=== PATIENT | female | born 1980 | race Caucasian/White ===

== ENCOUNTER 2018-04-25 08:48 | Emergency (ER) | payer MEDICAID ==
[~2018-04-25] VITALS: Ht 167.6 cm; Wt 73.6 kg
[~2018-04-25 08:48] MED LIST: NORG1TAB23; TRAN650T2 PO
[2018-04-25 09:01] VITALS: BP 130/83
[2018-04-25] MEDS ORDERED: AMOX-100 PO (09:23)
[2018-04-25] MEDS ORDERED: CHLO473M3 PO (09:23)
== END 2018-04-25 09:30 | disposition home or self-care (01) ==
LOC: ER 08:49
DX: K08.89 Other specified disorders of teeth and supporting structures (principal); F41.9 Anxiety disorder, unspecified; F31.9 Bipolar disorder, unspecified; Z86.14 Personal history of Methicillin resistant Staphylococcus aureus infection
CPT/HCPCS: 99283

== ENCOUNTER 2019-03-19 10:48 | Emergency (ER) | payer MEDICAID ==
[~2019-03-19] VITALS: Ht 167.6 cm; Wt 64.0 kg
[~2019-03-19 10:48] MED LIST changes: +CHLO473M3 PO
[2019-03-19 11:51] LABS: CLARITY,URINE CLEAR (Clear); COLOR,URINE YELLOW (Yellow); GLUCOSE, URINE NEGATIVE (Neg); KETONES,URINE NEGATIVE (Neg); LEUKOCYTE ESTERASE ,URINE NEGATIVE (Neg); NITRITES, URINE NEGATIVE (Neg); OCCULT BLOOD,URINE SMALL (Neg); PROTEIN,URINE NEGATIVE (Neg); UROBILINOGEN,URINE 0.2 E.U/dL (0.2-1.0)
[2019-03-19 11:53] LABS: URINE HCG NEGATIVE (NEG)
[2019-03-19 12:03] LABS: UA COLLECTION TYPE NON-SPECIFIED
[2019-03-19 12:05] LABS: BACTERIA,URINE NONE SEEN /HPF (Neg); MUCUS STRANDS FEW /LPF (Neg); RBC,URINE 0-2 /HPF (0-2); SQUAMOUS EPITHELIAL CELL,UR FEW /LPF (FEW); WBC,URINE NONE SEEN /HPF (0-4)
[2019-03-19 12:10] LABS: BASOPHILS % (AUTO) 0.3 % (0-1); EOSINOPHILS # (AUTO) 0.1 X10'3 (0-0.9); EOSINOPHILS % (AUTO) 1.2 % (0-6); HEMATOCRIT 44.5 % (35.0-45.0); HEMOGLOBIN 15.1 g/dl (12.0-16.0); LYMPHOCYTES # (AUTO) 1.2 X10'3 (1.1-4.8); LYMPHOCYTES % (AUTO) 13.9 % (21-51); MEAN CORPUSCULAR HEMOGLOBIN 32.1 PG (27.0-31.0); MEAN CORPUSCULAR HGB CONC 33.8 g/dL (33.0-36.5); MEAN CORPUSCULAR VOLUME 95.1 FL (78-98); MEAN PLATELET VOLUME 7.6 FL (7.4-10.4); MONOCYTES # (AUTO) 0.6 X10'3 (0-0.9); MONOCYTES % (AUTO) 6.3 % (2-12); NEUTROPHILS % (AUTO) 78.3 % (42-75); PLATELET COUNT 256 X10'3 (140-440); RED BLOOD COUNT 4.69 X10'6 (4.20-5.60); RED CELL DISTRIBUTION WIDTH 12.8 % (11.5-14.5); WHITE BLOOD COUNT 8.9 X10'3 (4.5-11.0)
[2019-03-19 12:20] LABS: ALANINE AMINOTRANSFERASE 21 U/L (12-78); ALBUMIN 4.1 G/DL (3.4-5.0); ALBUMIN/GLOBULIN RATIO 1.1 (1.1-1.5); ALKALINE PHOSPHATASE 65 IU/L (46-116); ANION GAP 10 (8-16); ASPARTATE AMINO TRANSFERASE 6 U/L (10-37); BILIRUBIN,TOTAL 0.3 MG/DL (0.1-1.0); BLOOD UREA NITROGEN 16 MG/DL (7-18); BUN/CREATININE RATIO 22.5 (6.6-38.0); CALCIUM 9.2 MG/DL (8.5-10.1); CHLORIDE 103 MMOL/L (99-107); CREATININE 0.71 MG/DL (0.40-0.90); GLUCOSE 100 MG/DL (70-104); POTASSIUM 3.8 MMOL/L (3.5-5.1); SODIUM 139 MMOL/L (135-145); TOTAL CARBON DIOXIDE 26.1 MMOL/L (24-32); eGFR > 90 ML/MIN
[2019-03-19] MEDS ORDERED: OMEP40CA37 PO (13:06)
[2019-03-19] MEDS ORDERED: ONDA4TAB12 PO (13:10)
[2019-03-19 13:15] VITALS: BP 128/78
== END 2019-03-19 13:27 | disposition home or self-care (01) ==
LOC: ER 10:48
DX: R10.13 Epigastric pain (principal); R11.10 Vomiting, unspecified; K21.9 Gastro-esophageal reflux disease without esophagitis; F41.9 Anxiety disorder, unspecified; F31.9 Bipolar disorder, unspecified; F17.200 Nicotine dependence, unspecified, uncomplicated; Z86.14 Personal history of Methicillin resistant Staphylococcus aureus infection; Z79.899 Other long term (current) drug therapy; Z90.710 Acquired absence of both cervix and uterus
CPT/HCPCS: 36415; 80053; 81001; 81025; 85025; 85610; 99283; 99291

== ENCOUNTER 2019-10-10 09:46 | Emergency (ER) | payer MEDICAID ==
[~2019-10-10] VITALS: Ht 167.6 cm; Wt 63.6 kg
[~2019-10-10 09:46] MED LIST changes: +ONDA4TAB12 PO
[2019-10-10 10:31] VITALS: BP 140/98
[2019-10-10 10:49] LABS: URINE HCG NEGATIVE (NEG)
[2019-10-10] MEDS ORDERED: diazepam 5mg tablet PO ONE (10:50)
[2019-10-10] MEDS ORDERED: ketorolac tromethamine 15mg/ml inj. IM ONE (10:50)
[2019-10-10 10:52] LABS: CLARITY,URINE SLIGHTLY CLOUDY (Clear); COLOR,URINE STRAW (Yellow); GLUCOSE, URINE NEGATIVE (Neg); KETONES,URINE NEGATIVE (Neg); LEUKOCYTE ESTERASE ,URINE NEGATIVE (Neg); NITRITES, URINE NEGATIVE (Neg); OCCULT BLOOD,URINE NEGATIVE (Neg); PROTEIN,URINE NEGATIVE (Neg); UROBILINOGEN,URINE 0.2 E.U/dL (0.2-1.0)
[2019-10-10 10:53] LABS: UA COLLECTION TYPE CLN CATCH MIDSTREAM
[2019-10-10 11:04] LABS: SQUAMOUS EPITHELIAL CELL,UR MANY /LPF (FEW)
[2019-10-10 11:06] LABS: EOSINOPHILS # (AUTO) 0.1 X10'3 (0-0.9); HEMOGLOBIN 14.1 g/dl (12.0-16.0); RED CELL DISTRIBUTION WIDTH 12.5 % (11.5-14.5)
[2019-10-10 11:07] LABS: BACTERIA,URINE 2+ /HPF (Neg); MUCUS STRANDS NONE SEEN /LPF (Neg); RBC,URINE 0-2 /HPF (0-2); WBC,URINE 0-4 /HPF (0-4)
[2019-10-10 11:08] LABS: BASOPHILS % (AUTO) 0.4 % (0-1); EOSINOPHILS % (AUTO) 1.4 % (0-6); HEMATOCRIT 41.1 % (35.0-45.0); LYMPHOCYTES # (AUTO) 1.8 X10'3 (1.1-4.8); LYMPHOCYTES % (AUTO) 25.3 % (21-51); MEAN CORPUSCULAR HEMOGLOBIN 31.2 PG (27.0-31.0); MEAN CORPUSCULAR HGB CONC 34.3 g/dL (33.0-36.5); MEAN PLATELET VOLUME 7.6 FL (7.4-10.4); MONOCYTES # (AUTO) 0.4 X10'3 (0-0.9); MONOCYTES % (AUTO) 5.5 % (2-12); NEUTROPHILS # (AUTO) 4.8 X10'3 (1.8-7.7); NEUTROPHILS % (AUTO) 67.4 % (42-75); PLATELET COUNT 268 X10'3 (140-440); RED BLOOD COUNT 4.51 X10'6 (4.20-5.60); WHITE BLOOD COUNT 7.1 X10'3 (4.5-11.0)
[2019-10-10 11:21] LABS: ALANINE AMINOTRANSFERASE 22 U/L (12-78); ALBUMIN 4.1 G/DL (3.4-5.0); ALBUMIN/GLOBULIN RATIO 1.1 (1.1-1.5); ALKALINE PHOSPHATASE 63 IU/L (46-116); ANION GAP 6 (8-16); ASPARTATE AMINO TRANSFERASE 16 U/L (10-37); BILIRUBIN,TOTAL 0.2 MG/DL (0.1-1.0); BLOOD UREA NITROGEN 17 MG/DL (7-18); BUN/CREATININE RATIO 24.6 (6.6-38.0); CHLORIDE 104 MMOL/L (99-107); CREATININE 0.69 MG/DL (0.40-0.90); GLUCOSE 82 MG/DL (70-104); LIPASE 143 U/L (73-393); POTASSIUM 4.1 MMOL/L (3.5-5.1); SODIUM 140 MMOL/L (135-145); TOTAL CARBON DIOXIDE 29.9 MMOL/L (24-32); TOTAL PROTEIN 7.7 G/DL (6.4-8.2); eGFR > 90 ML/MIN
[2019-10-10] MEDS ORDERED: NAPR-56 PO (11:35)
[2019-10-10] MEDS ORDERED: TIZA2CAP PO (11:35)
== END 2019-10-10 11:44 | disposition home or self-care (01) ==
LOC: ER 09:46
DX: M54.41 Lumbago with sciatica, right side (principal); F41.9 Anxiety disorder, unspecified; F31.9 Bipolar disorder, unspecified; F10.99 Alcohol use, unspecified with unspecified alcohol-induced disorder; Z86.14 Personal history of Methicillin resistant Staphylococcus aureus infection; Z79.899 Other long term (current) drug therapy; Y90.9 Presence of alcohol in blood, level not specified
CPT/HCPCS: 36415; 80053; 81001; 81025; 83690; 85025; 96372; 99283; J1885

== ENCOUNTER 2020-04-29 13:23 | Inpatient (IN) | payer MEDICAID ==
[2020-04-29] VITALS (7 sets, daily range): BP systolic 92–114; BP diastolic 58–70
[~2020-04-29] VITALS: Ht 170.2 cm; Wt 63.1 kg
[~2020-04-29 13:23] MED LIST changes: +TIZA2CAP PO
--- NOTE | 2020-04-29 13:37 | NUR ---
POSISON CONTROL CONTACTED NOTIFIED OF RECOMMENDATIONS
--- NOTE | 2020-04-29 13:45 | NUR ---
POSION CONTROL RECOMMENDATIONS: Labs: unrine tox, CMP TYLENOL, BLOOD ALCOHOL 24 HOUR OBSERVATION NARCAN FOR RESP. DEPRESSION (has to be obs. for 4 hours after administration) IV FLUIDS FOR HYPOTENTION EKG AND REPEAT EKG AT 4 HOURS CHECK BLOOD SUGAR IF QTc >500 give magnesium 1-2g IF SHE HAS A SEIZURE USE BENZOS FIRST LINE OF TREATMENT
[2020-04-29 13:47] LABS: EOSINOPHILS # (AUTO) 0.1 X10'3 (0-0.9); NEUTROPHILS # (AUTO) 1.6 X10'3 (1.8-7.7); RED CELL DISTRIBUTION WIDTH 13.1 % (11.5-14.5)
[2020-04-29 13:49] LABS: BASOPHILS % (AUTO) 0.7 % (0-1); EOSINOPHILS % (AUTO) 3.9 % (0-6); HEMATOCRIT 40.6 % (35.0-45.0); HEMOGLOBIN 13.8 g/dl (12.0-16.0); LYMPHOCYTES % (AUTO) 29.3 % (21-51); MEAN CORPUSCULAR HEMOGLOBIN 31.7 PG (27.0-31.0); MEAN CORPUSCULAR HGB CONC 34.1 g/dL (33.0-36.5); MEAN CORPUSCULAR VOLUME 92.9 FL (78-98); MEAN PLATELET VOLUME 7.4 FL (7.4-10.4); MONOCYTES # (AUTO) 0.6 X10'3 (0-0.9); MONOCYTES % (AUTO) 17.9 % (2-12); NEUTROPHILS % (AUTO) 48.2 % (42-75); PLATELET COUNT 202 X10'3 (140-440); RED BLOOD COUNT 4.37 X10'6 (4.20-5.60); WHITE BLOOD COUNT 3.4 X10'3 (4.5-11.0)
[2020-04-29] MEDS: naloxone 0.4 mg/ml inj IV PRN ×4 (13:54→15:34)
--- NOTE | 2020-04-29 13:55 | NUR ---
SECOND DOSE OF NARCAN 0.4MG IV GIVEN.
[2020-04-29 13:56] LABS: ALANINE AMINOTRANSFERASE 21 U/L (12-78); ALBUMIN 3.9 G/DL (3.4-5.0); ALBUMIN/GLOBULIN RATIO 1.1 (1.1-1.5); ALKALINE PHOSPHATASE 64 IU/L (46-116); ANION GAP 8 (8-16); ASPARTATE AMINO TRANSFERASE 18 U/L (10-37); BILIRUBIN,TOTAL 0.3 MG/DL (0.1-1.0); BLOOD UREA NITROGEN 14 MG/DL (7-18); CALCIUM 9.2 MG/DL (8.5-10.1); CHLORIDE 104 MMOL/L (99-107); CREATININE 1.17 MG/DL (0.40-0.90); GLUCOSE 133 MG/DL (70-104); POTASSIUM 3.6 MMOL/L (3.5-5.1); SODIUM 139 MMOL/L (135-145); TOTAL CARBON DIOXIDE 27.5 MMOL/L (24-32); TOTAL PROTEIN 7.5 G/DL (6.4-8.2); eGFR 51 ML/MIN
--- NOTE | 2020-04-29 13:59 | NUR ---
PHONE # [phone] CELL [phone]
[2020-04-29 14:01] LABS: URINE HCG NEGATIVE (NEG)
[2020-04-29 14:02] LABS: CLARITY,URINE SLIGHTLY CLOUDY (Clear); COLOR,URINE AMBER (Yellow); GLUCOSE, URINE NEGATIVE (Neg); KETONES,URINE 15 mg/dl (Neg); LEUKOCYTE ESTERASE ,URINE NEGATIVE (Neg); NITRITES, URINE NEGATIVE (Neg); OCCULT BLOOD,URINE TRACE-LYSED (Neg); PH,URINE 5.5 (4.8-8.0); PROTEIN,URINE 30 mg/dl (Neg)
[2020-04-29 14:03] LABS: UA COLLECTION TYPE STRAIGHT CATH
[2020-04-29 14:06] LABS: ETHANOL < 0.010 GM/DL (0.0-0.010)
[2020-04-29 14:07] LABS: ACETAMINOPHEN < 2.0 UG/ML (10-30)
[2020-04-29 14:08] LABS: URINE AMPHETAMINE SCREEN POSITIVE (Neg); URINE BARBITUATE SCREEN NEGATIVE (Neg); URINE BENZODIAZEPINES SCREEN POSITIVE (Neg); URINE CANNABINOID SCREEN POSITIVE (Neg); URINE COCAINE SCREEN NEGATIVE (Neg); URINE METHADONE SCREEN POSITIVE (Neg); URINE OPIATE SCREEN POSITIVE (Neg); URINE PHENCYCLIDINE SCREEN NEGATIVE (Neg)
--- NOTE | 2020-04-29 14:12 | NUR ---
PATIENT DIAPHORETIC,STARING OFF THE WALL.PUPILS DILATED 7MM.SEIZURE PADS PLACED.
[2020-04-29] MEDS ORDERED: LORazepam 2 mg/ml vial IV STA (14:14)
--- NOTE | 2020-04-29 14:14 | NUR ---
PATIENT REPORTS SHE WANTED TO LEAVE AND THERE'S NO WAY STAFF CAN KEEP HER HERE.DR. KOLB MADE AWARE,PT ANXIOUS,ATIVAN 1MG ORDERED WITH 1L NS.
[2020-04-29 14:16] LABS: MUCUS STRANDS MANY /LPF (Neg); SQUAMOUS EPITHELIAL CELL,UR MANY /LPF (FEW)
[2020-04-29 14:18] LABS: BACTERIA,URINE FEW /HPF (Neg); WBC,URINE 0-4 /HPF (0-4)
[2020-04-29] MEDS ORDERED: normal saline 1000ML IV soln IVB ONE (14:20)
[2020-04-29] MEDS ORDERED: LORazepam 2 mg/ml vial IV ONE (14:20)
[2020-04-29 14:27] LABS: TOTAL CELLS COUNTED 100
[2020-04-29 14:30] LABS: PLATELET ESTIMATE NORMAL
[2020-04-29] MEDS ORDERED: magnesium 2GM in 50ml NS 50 ML IV PRN (15:30)
[2020-04-29] MEDS ORDERED: magnesium Cl slow-release 64mg tablet PO PRN ×2 (15:30→18:30)
[2020-04-29] MEDS ORDERED: potassium Cl 20 mEq SR tablet PO PRN ×3 (15:30→18:30)
[2020-04-29] MEDS ORDERED: magnesium 4gm in 100ml NS 100 ML IV PRN ×2 (15:30→18:30)
[2020-04-29] MEDS ORDERED: potassium CL 10mEq/100ml bag 100 ML IV PRN ×3 (15:30→18:30)
[2020-04-29] MEDS ORDERED: acetaminophen 650mg rectal suppository RC PRN (15:30)
[2020-04-29] MEDS ORDERED: ondansetron/PF 4mg/2ml inj IV PRN (15:30)
[2020-04-29] MEDS ORDERED: K, MAG and/or Phos replacement - Verify level? MC SCH (15:30)
[2020-04-29] MEDS ORDERED: acetaminophen 325mg tablet PO PRN (15:30)
--- NOTE | 2020-04-29 15:31 | NUR ---
SPOKE TO TRISTIAN [employer] FORMER PALLIATIVE CARE PHYSICIAN,MADE AWARE RR 6-8 BREATHS/MIN.SAID SHE WILL ORDER A DRIP.PATIENT REPONSE TO VOICE.
--- NOTE | 2020-04-29 15:32 | NUR ---
PATIENT EASILY AROUSE.
--- NOTE | 2020-04-29 15:43 | NUR ---
called pharmacy,still making narcan.
[2020-04-29] MEDS: normal saline 1000ml 1,000 ML IV SCH (15:53)
[2020-04-29] MEDS: naloxone 2mg/2ml inj 2 MG in normal saline 500ml IV soln 498 ML IV SCH (15:53)
[2020-04-29] MEDS: pantoprazole 40 MG vial IV SCH (16:09)
[2020-04-29] MEDS ORDERED: PROP10TA10 PO (17:20)
[2020-04-29] MEDS ORDERED: CYCL5TAB PO (17:20)
[2020-04-29] MEDS ORDERED: BUSP7.5T4 PO (17:20)
[2020-04-29] MEDS ORDERED: LURA60TA2 PO (17:20)
[2020-04-29] MEDS ORDERED: LURA80TA3 PO (17:20)
[2020-04-29] MEDS ORDERED: naloxone 0.4 mg/ml inj IV ONE (17:25)
--- NOTE | 2020-04-29 17:43 | NUR ---
1640- patient arrived from ER, very drowsy able to scoot self over to bed. respirations 6-8, bp stable. rouses, oriented x4. narcan gtt on at 25 ml. 171- respirations remain low, spoke with Kaela Awad notified. one time dose of narcan 0.2 given. 174-respirations currently at 8. 2nd EKG in progress.
[2020-04-29] MEDS: lurasidone 60mg tablet PO SCH (18:00)
[2020-04-29] MEDS: dextrose 5%-normal saline 1,000 ML IV SCH (18:19)
--- NOTE | 2020-04-29 18:40 | NUR ---
1840- Spoke with poison control, recommendations discussed with Guy Awad, orders placed accordingly. Reported off to oncoming shift.
[2020-04-29 20:36] LABS: ABG BASE EXCESS -2.1 mmol/L (-2.0-2.0); ABG HCO3 25.4 mmol/L (22.0-26.0); ABG OXYGEN SATURATION 97.9 % (94-97); ABG PCO2 (T) 54.5 mmHg (32.0-45.0); ALLEN'S TEST POSITIVE; FCOHb 0.2 % (0.0-3.9); FMetHb 0.1 % (0.0-1.5); FO2Hb 97.6 % (94-97); PATIENT TEMPERATURE 36.5; TOTAL HEMOGLOBIN 12.4 G/dl (12.0-16.0)
[2020-04-29] MEDS: heparin, porcine 5000 units/ml vial SQ SCH (20:57)
[2020-04-29 21:00] LABS: MAGNESIUM 1.9 MG/DL (1.5-2.4); POTASSIUM 4.4 MMOL/L (3.5-5.1)
--- NOTE | 2020-04-29 22:47 | NUR ---
Patient in room CICU 2009. I have received report from Harley PRAKASH and had the opportunity to ask questions and assume patient care.
--- NOTE | 2020-04-29 23:19 | NUR ---
unable to DART pt at this time, pt not able to answer questions, will try again at a later time.
[2020-04-30] VITALS (31 sets, daily range): BP systolic 78–119; BP diastolic 39–73
[2020-04-30] MEDS ORDERED: magnesium 2GM in 50ml NS 50 ML IV ONE (00:15)
[2020-04-30] MEDS: naloxone 2mg/2ml inj 2 MG in normal saline 500ml IV soln 498 ML IV SCH ×2 (04:04→13:52)
[2020-04-30 05:30] LABS: BASOPHILS % (AUTO) 0.7 % (0-1); EOSINOPHILS # (AUTO) 0.1 X10'3 (0-0.9); EOSINOPHILS % (AUTO) 3.4 % (0-6); HEMOGLOBIN 11.8 g/dl (12.0-16.0); LYMPHOCYTES # (AUTO) 1.5 X10'3 (1.1-4.8); LYMPHOCYTES % (AUTO) 36.9 % (21-51); MEAN CORPUSCULAR HEMOGLOBIN 32.5 PG (27.0-31.0); MEAN CORPUSCULAR HGB CONC 34.7 g/dL (33.0-36.5); MEAN CORPUSCULAR VOLUME 93.7 FL (78-98); MEAN PLATELET VOLUME 7.4 FL (7.4-10.4); MONOCYTES # (AUTO) 0.8 X10'3 (0-0.9); MONOCYTES % (AUTO) 18.4 % (2-12); NEUTROPHILS # (AUTO) 1.7 X10'3 (1.8-7.7); NEUTROPHILS % (AUTO) 40.6 % (42-75); PLATELET COUNT 167 X10'3 (140-440); RED BLOOD COUNT 3.63 X10'6 (4.20-5.60); WHITE BLOOD COUNT 4.2 X10'3 (4.5-11.0)
[2020-04-30 05:45] LABS: ALANINE AMINOTRANSFERASE 16 U/L (12-78); ALKALINE PHOSPHATASE 44 IU/L (46-116); ANION GAP 6 (8-16); ASPARTATE AMINO TRANSFERASE 13 U/L (10-37); BILIRUBIN,TOTAL 0.2 MG/DL (0.1-1.0); BLOOD UREA NITROGEN 9 MG/DL (7-18); BUN/CREATININE RATIO 11.1 (6.6-38.0); CALCIUM 8.5 MG/DL (8.5-10.1); CHLORIDE 109 MMOL/L (99-107); CREATININE 0.81 MG/DL (0.40-0.90); GLUCOSE 83 MG/DL (70-104); MAGNESIUM 2.4 MG/DL (1.5-2.4); PHOSPHORUS 3.3 MG/DL (2.3-4.5); SODIUM 142 MMOL/L (135-145); TOTAL CARBON DIOXIDE 26.8 MMOL/L (24-32); TOTAL PROTEIN 5.9 G/DL (6.4-8.2); eGFR 79 ML/MIN
[2020-04-30] MEDS: dextrose 50%-water 50ml dispensing syringe IV PRN ×3 (05:51→10:21)
--- NOTE | 2020-04-30 06:21 | NUR ---
Problems reprioritized. Patient report given, questions answered & plan of care reviewed with Nikkie PRAKASH.
[2020-04-30 06:56] LABS: TOTAL CELLS COUNTED 100
[2020-04-30 06:57] LABS: PLATELET ESTIMATE NORMAL
[2020-04-30] MEDS: normal saline 1000ml 1,000 ML IV SCH ×2 (07:20→07:26)
[2020-04-30] MEDS: lurasidone 20mg tablet PO SCH (07:22)
[2020-04-30] MEDS: heparin, porcine 5000 units/ml vial SQ SCH ×2 (07:23→20:35)
[2020-04-30] MEDS: dextrose 5%-normal saline 1,000 ML IV SCH ×2 (07:24→21:08)
[2020-04-30] MEDS: lurasidone 60mg tablet PO SCH (07:26)
[2020-04-30] MEDS: pantoprazole 40 MG vial IV SCH (07:30)
[2020-04-30] MEDS: magnesium 2GM in 50ml NS 50 ML IV PRN ×2 (08:54→12:22)
[2020-04-30 08:57] LABS: ANION GAP 8 (8-16); BILIRUBIN,TOTAL 0.2 MG/DL (0.1-1.0); BLOOD UREA NITROGEN 11 MG/DL (7-18); BUN/CREATININE RATIO 13.1 (6.6-38.0); CALCIUM 8.3 MG/DL (8.5-10.1); CHLORIDE 107 MMOL/L (99-107); CREATININE 0.84 MG/DL (0.40-0.90); GLUCOSE 156 MG/DL (70-104); POTASSIUM 3.8 MMOL/L (3.5-5.1); SODIUM 139 MMOL/L (135-145); TOTAL CARBON DIOXIDE 24.2 MMOL/L (24-32); eGFR 75 ML/MIN
[2020-04-30 08:58] LABS: ALANINE AMINOTRANSFERASE 11 U/L (12-78); ALBUMIN 3.1 G/DL (3.4-5.0); ALKALINE PHOSPHATASE 47 IU/L (46-116); ASPARTATE AMINO TRANSFERASE 14 U/L (10-37); TOTAL PROTEIN 6.1 G/DL (6.4-8.2)
--- NOTE | 2020-04-30 10:28 | NUR ---
RECEIVED REPORT AND ASSUMED CARE OF PATIENT. PATIENT AWAKE ,HOWEVER DROWSY. BS 60; 50% OF DEXTROSE GIVEN. DR. WILKINSON IN ROUNDING; ORDERS GIVEN AND NOTED.NETWORK TECHNICIAN AT BEDSIDE. CONTINUE ONE TO SURVEILLANCE. Addendum: 04/30/20 at 1038 by Mackenzie Jacobs RN Amended: Links added.
--- NOTE | 2020-04-30 12:14 | NUR ---
EKG TAKEN QT INTERVAL NOW 506; WILL HANG 2GRAMS OF MAG. Addendum: 04/30/20 at 1216 by Mackenzie Jacobs RN Amended: Links added.
--- NOTE | 2020-04-30 12:49 | NUR ---
Noted pt advanced to carb controlled diet w/ no hx DM; LAKESHA d/w RN regarding regular diet if MD agreeable. Addendum: 04/30/20 at [address] Amended: Links added.
--- NOTE | 2020-04-30 15:43 | NUR ---
DR. VICTORIA INTO SEE PATIENT.NARCAN GTT TURNED OFF PER ORDER . PATIENT HAS BEEN INCREASINGLY MORE ALERT THIS SHIFT. Addendum: 04/30/20 at 1547 by Mackenzie Jacobs RN Amended: Links added.
--- NOTE | 2020-04-30 18:20 | NUR ---
Patient in room CICU 2009. I have received report from Mackenzie PRAKASH and had the opportunity to ask questions and assume patient care.
--- NOTE | 2020-04-30 22:21 | NUR ---
Pt is easily aroused, dozing to sleep. RR 7-10/min with oxygen saturation 99-100% on room air. Rhythm is sinus HR 48-50. BP 100/53. No distress.
[2020-04-30] MEDS ORDERED: naloxone 0.4 mg/ml inj IV PRN (23:35)
[2020-04-30] MEDS ORDERED: lurasidone 60mg tablet PO SCH (23:36)
[2020-05-01] VITALS (38 sets, daily range): BP systolic 92–162; BP diastolic 42–83
[2020-05-01] MEDS ORDERED: GABA300C PO (05:09)
[2020-05-01 05:10] LABS: BASOPHILS % (AUTO) 0.5 % (0-1); EOSINOPHILS # (AUTO) 0.1 X10'3 (0-0.9); EOSINOPHILS % (AUTO) 2.8 % (0-6); HEMOGLOBIN 11.7 g/dl (12.0-16.0); LYMPHOCYTES # (AUTO) 1.4 X10'3 (1.1-4.8); LYMPHOCYTES % (AUTO) 38.4 % (21-51); MEAN CORPUSCULAR HEMOGLOBIN 31.3 PG (27.0-31.0); MEAN CORPUSCULAR HGB CONC 33.3 g/dL (33.0-36.5); MEAN PLATELET VOLUME 7.5 FL (7.4-10.4); MONOCYTES # (AUTO) 0.4 X10'3 (0-0.9); MONOCYTES % (AUTO) 10.1 % (2-12); NEUTROPHILS # (AUTO) 1.7 X10'3 (1.8-7.7); NEUTROPHILS % (AUTO) 48.2 % (42-75); PLATELET COUNT 177 X10'3 (140-440); RED BLOOD COUNT 3.73 X10'6 (4.20-5.60); WHITE BLOOD COUNT 3.5 X10'3 (4.5-11.0)
[2020-05-01] MEDS ORDERED: METH-603 PO (05:12)
--- NOTE | 2020-05-01 05:19 | NUR ---
Spoke to VARNISH FILTERER at [facility], updated Medication list received, Pts lead public relations specialist is Miranda Sharma. Pt was not on Xanax, and methocarbamol had been dc in January. Spoke to Anna Jane regarding pt has two small children at home, social studies teacher consult place for possible CPS intervention
[2020-05-01 05:31] LABS: ALANINE AMINOTRANSFERASE 17 U/L (12-78); ALBUMIN 2.9 G/DL (3.4-5.0); ALBUMIN/GLOBULIN RATIO 0.9 (1.1-1.5); ALKALINE PHOSPHATASE 45 IU/L (46-116); ANION GAP 7 (8-16); ASPARTATE AMINO TRANSFERASE 11 U/L (10-37); BILIRUBIN,TOTAL 0.2 MG/DL (0.1-1.0); BLOOD UREA NITROGEN 7 MG/DL (7-18); BUN/CREATININE RATIO 8.3 (6.6-38.0); CHLORIDE 109 MMOL/L (99-107); CREATININE 0.84 MG/DL (0.40-0.90); GLUCOSE 97 MG/DL (70-104); PHOSPHORUS 3.7 MG/DL (2.3-4.5); POTASSIUM 3.8 MMOL/L (3.5-5.1); SODIUM 142 MMOL/L (135-145); TOTAL CARBON DIOXIDE 26.4 MMOL/L (24-32); eGFR 75 ML/MIN
--- NOTE | 2020-05-01 06:29 | NUR ---
Problems reprioritized. Patient report given, questions answered & plan of care reviewed .
[2020-05-01] MEDS: normal saline 1000ml 1,000 ML IV SCH ×2 (07:28→20:48)
[2020-05-01] MEDS: pantoprazole 40 MG vial IV SCH (08:05)
[2020-05-01] MEDS: lurasidone 20mg tablet PO SCH (08:06)
[2020-05-01] MEDS: heparin, porcine 5000 units/ml vial SQ SCH ×2 (08:06→21:06)
[2020-05-01] MEDS: dextrose 5%-normal saline 1,000 ML IV SCH ×2 (08:49→22:47)
--- NOTE | 2020-05-01 09:26 | NUR ---
Dr. Marks at bedside. Per MD patient medically cleared. Spoke with Aisha, Bead Picker, packet being sent to mental health for evaluation.
--- NOTE | 2020-05-01 18:30 | NUR ---
Patient in room CICU 2009. I have received report from OLINDA Demarco and had the opportunity to ask questions and assume patient care. When nurse introduced self to patient, pt was observed to be visibly agitated. Nurse encouraged pt to express feelings. Pt denied need express feeling by stating "I'm fine. Nothing is wrong."
--- NOTE | 2020-05-01 18:50 | NUR ---
Patient's nurse and sitter were in another patient's room and I was asked to sit with her. She was hostile, cussing, pulling at lines and being overall unpleasant. I tried to help untangle her so she wouldn't pull on the lines and she told me to "get the fuck out". She also said she could leave anytime she wanted and I said "ok whatever you say". Patient's nurse came back so i left the room
[2020-05-02] VITALS (19 sets, daily range): BP systolic 105–161; BP diastolic 58–83
[2020-05-02 06:09] LABS: ALANINE AMINOTRANSFERASE 25 U/L (12-78); ALBUMIN 3.3 G/DL (3.4-5.0); ALBUMIN/GLOBULIN RATIO 1.1 (1.1-1.5); ALKALINE PHOSPHATASE 58 IU/L (46-116); ANION GAP 6 (8-16); ASPARTATE AMINO TRANSFERASE 22 U/L (10-37); BILIRUBIN,TOTAL 0.2 MG/DL (0.1-1.0); BLOOD UREA NITROGEN 5 MG/DL (7-18); BUN/CREATININE RATIO 5.8 (6.6-38.0); CALCIUM 8.8 MG/DL (8.5-10.1); CHLORIDE 106 MMOL/L (99-107); CREATININE 0.86 MG/DL (0.40-0.90); GLUCOSE 84 MG/DL (70-104); MAGNESIUM 1.7 MG/DL (1.5-2.4); PHOSPHORUS 3.7 MG/DL (2.3-4.5); POTASSIUM 3.8 MMOL/L (3.5-5.1); SODIUM 140 MMOL/L (135-145); TOTAL CARBON DIOXIDE 27.7 MMOL/L (24-32); TOTAL PROTEIN 6.4 G/DL (6.4-8.2); eGFR 73 ML/MIN
[2020-05-02 06:11] LABS: BASOPHILS % (AUTO) 0.4 % (0-1); EOSINOPHILS # (AUTO) 0.1 X10'3 (0-0.9); EOSINOPHILS % (AUTO) 1.9 % (0-6); HEMATOCRIT 38.8 % (35.0-45.0); HEMOGLOBIN 13.2 g/dl (12.0-16.0); LYMPHOCYTES # (AUTO) 1.6 X10'3 (1.1-4.8); MEAN CORPUSCULAR HEMOGLOBIN 31.3 PG (27.0-31.0); MEAN CORPUSCULAR VOLUME 92.3 FL (78-98); MEAN PLATELET VOLUME 7.2 FL (7.4-10.4); MONOCYTES # (AUTO) 0.3 X10'3 (0-0.9); MONOCYTES % (AUTO) 6.8 % (2-12); NEUTROPHILS # (AUTO) 2.6 X10'3 (1.8-7.7); NEUTROPHILS % (AUTO) 56.9 % (42-75); PLATELET COUNT 183 X10'3 (140-440); RED BLOOD COUNT 4.21 X10'6 (4.20-5.60); RED CELL DISTRIBUTION WIDTH 12.5 % (11.5-14.5); WHITE BLOOD COUNT 4.6 X10'3 (4.5-11.0)
[2020-05-02] MEDS ORDERED: pantoprazole 40mg Tablet.DR PO SCH (07:30)
[2020-05-02] MEDS: heparin, porcine 5000 units/ml vial SQ SCH (07:42)
[2020-05-02] MEDS: lurasidone 20mg tablet PO SCH (07:43)
[2020-05-02] MEDS: normal saline 1000ml 1,000 ML IV SCH (10:08)
--- NOTE | 2020-05-02 17:45 | NUR ---
Patient report given to RN in ED overflow. Pt transported off unit via wheelchair by staff.
--- NOTE | 2020-05-02 17:54 | NUR ---
PATIENT RECEIVED TO OVERFLOW BED 22 FROM CICU.
--- NOTE | 2020-05-02 17:54 | NUR ---
GREEN GOWN GIVEN,PATIENT UP TO THE BATHROOM.
[2020-05-03 12:53] LABS: EBV AB VCA, IGM <36.0 U/mL (0.0-35.9)
== END 2020-05-02 17:58 | disposition home or self-care (01) | DRG 817 ==
LOC: ER 13:23 → ED HOLD 15:28 → CICU 2S 17:01
PROC: 5A09357 Assistance with Respiratory Ventilation, Less than 24 Consecutive Hours, Continuous Positive Airway Pressure (ICD-10-PCS; principal; 2020-04-29)
DX: T42.4X2A Poisoning by benzodiazepines, intentional self-harm, initial encounter (principal); D72.819 Decreased white blood cell count, unspecified; F31.9 Bipolar disorder, unspecified; G92 Toxic encephalopathy; T40.3X2A Poisoning by methadone, intentional self-harm, initial encounter; R00.1 Bradycardia, unspecified; F41.9 Anxiety disorder, unspecified; G89.29 Other chronic pain; M54.5 Low back pain; I95.9 Hypotension, unspecified; Z80.0 Family history of malignant neoplasm of digestive organs; Z82.3 Family history of stroke; Z82.49 Family history of ischemic heart disease and other diseases of the circulatory system; Z83.71 Family history of colonic polyps; Z79.899 Other long term (current) drug therapy; Z98.51 Tubal ligation status; Y92.89 Other specified places as the place of occurrence of the external cause
CPT/HCPCS: 36415; 36600; 80053; 80305; 80320; 80329; 81001; 81025; 82803; 82948; 83735; 84100; 84132; 84443; 85007; 85018; 85025; 86663; 86664; 86665; 87081; 93005; 94660; 94760; 96361; 96374; 99291; C9113; G0378; J1644; J2060; J2310; J3475; J7030; J7040; J7042

== ENCOUNTER 2020-05-02 18:00 | Emergency (ER) | payer MEDICAID ==
[~2020-05-02] VITALS: Ht 167.6 cm; Wt 61.0 kg
[~2020-05-02 18:00] MED LIST changes: +BUSP7.5T4 PO; -CHLO473M3 PO; +CYCL5TAB PO; +GABA300C PO; +LURA60TA2 PO; +LURA80TA3 PO; +METH-603 PO; -NORG1TAB23; -ONDA4TAB12 PO; +PROP10TA10 PO; -TIZA2CAP PO; -TRAN650T2 PO
--- NOTE | 2020-05-02 18:49 | NUR ---
DR. SOSA WAS MADE AWARE OF THE PATIENT'S CURRENT SITUATION REGARDING PRIOR SELF HARM BEHAVIOR AND HER DISCHARGE FROM CICU FOR OD.
--- NOTE | 2020-05-02 19:31 | NUR ---
SPOKE TO SCOTT AT [facility]. SHE STATED THAT [facility] ([facility])HASN'T MENTIONED THE NEED FOR NEW LAB, SO AT THIS POINT, NO FURTHER LAB DRAWS ARE NEEDED.
[2020-05-02] MEDS: propranolol 10mg tablet PO SCH (20:03)
[2020-05-02] MEDS: busPIRone 15mg tablet PO SCH (20:03)
--- NOTE | 2020-05-02 20:56 | NUR ---
patient is sleeping undisturbed.
--- NOTE | 2020-05-02 22:00 | NUR ---
Packet faxed to [facility]
--- NOTE | 2020-05-02 23:54 | NUR ---
patient is sleeping undisturbed.
--- NOTE | 2020-05-03 02:46 | NUR ---
patient is sleeping undisturbed.
--- NOTE | 2020-05-03 04:40 | NUR ---
Spoke to [facility] regarding patient placement. They approved the packet said they will work on placement for the patient this morning
--- NOTE | 2020-05-03 04:42 | NUR ---
patient sleeping quietly
--- NOTE | 2020-05-03 06:21 | NUR ---
Received reoprt from Etienne
--- NOTE | 2020-05-03 06:59 | NUR ---
Pt is sleeping comfortably
--- NOTE | 2020-05-03 07:57 | NUR ---
Pt has reopsitioned self but goes back to sleep
[2020-05-03] MEDS ORDERED: lurasidone 20mg tablet PO SCH (08:00)
[2020-05-03] MEDS: busPIRone 15mg tablet PO SCH (08:15)
[2020-05-03] MEDS: propranolol 10mg tablet PO SCH (08:18)
--- NOTE | 2020-05-03 08:59 | NUR ---
Pt ate breakfast, was medication compliant, polite and cooperative. Pt stated she was feeling fine and went back to sleep after breakfast
--- NOTE | 2020-05-03 10:29 | NUR ---
Pt is still sleeping, only engages in simple conversation with short responses.
--- NOTE | 2020-05-03 12:46 | NUR ---
pt has been conversing on the phone, pleasant, cooperative and polite. Pt is concerned about placement and when it will happen
--- NOTE | 2020-05-03 13:13 | NUR ---
no concerns voiced at this time, Pt ate lunch, uses the restroom frequently, continues to rest on her bed, pt denies any SI
--- NOTE | 2020-05-03 14:48 | NUR ---
Spoke with Anel at [facility]. Provided information for nurse to nurse, pending acceptance for placement
--- NOTE | 2020-05-03 15:13 | NUR ---
Received call from from [facility], spoke with Deshawn who advised of acceptance of patient, pending ETA and will call back when closer time frame is verified
--- NOTE | 2020-05-03 16:04 | NUR ---
Pt is on the phone, currently awaiting placement. Pt expressed happiness to DC to another facility and does not voice any concerns at this time
--- NOTE | 2020-05-03 16:17 | NUR ---
kostas pickup at 1830
--- NOTE | 2020-05-03 16:34 | NUR ---
Pt is awaiting fruit or nut picker for transport to [facility]. supervisor gelatin plant [place] Pt relieved to be able to go, explained some of the discharge and admit process to her.
--- NOTE | 2020-05-03 17:16 | NUR ---
Pt resting, no new concerns at this time
--- NOTE | 2020-05-03 17:23 | NUR ---
Per [facility]/jennifer, accepting provider is Miranda Alva NP and Anel Hammer RN
[2020-05-03 19:13] VITALS: BP 140/89
[2020-05-03] MEDS ORDERED: lurasidone 60mg tablet PO SCH (21:00)
== END 2020-05-03 19:17 ==
LOC: ER 18:00
DX: T40.3X2A Poisoning by methadone, intentional self-harm, initial encounter (principal); T42.4X2A Poisoning by benzodiazepines, intentional self-harm, initial encounter; F41.9 Anxiety disorder, unspecified; F31.9 Bipolar disorder, unspecified; F17.200 Nicotine dependence, unspecified, uncomplicated; Z86.14 Personal history of Methicillin resistant Staphylococcus aureus infection; Z90.49 Acquired absence of other specified parts of digestive tract; Z72.89 Other problems related to lifestyle; Z79.899 Other long term (current) drug therapy; Y92.89 Other specified places as the place of occurrence of the external cause
CPT/HCPCS: 99285

== ENCOUNTER 2020-06-09 15:34 | Emergency (ER) | payer MEDICAID ==
[~2020-06-09] VITALS: Ht 167.6 cm; Wt 63.6 kg
[~2020-06-09 15:34] MED LIST changes: -BUSP7.5T4 PO; +BUSP7.5T5 PO; -CYCL5TAB PO; -GABA300C PO; -METH-603 PO
[2020-06-09 15:38] VITALS: BP 128/77
== END 2020-06-09 16:09 | disposition home or self-care (01) ==
LOC: ER 15:35
DX: Z13.89 Encounter for screening for other disorder (principal); F17.200 Nicotine dependence, unspecified, uncomplicated; F15.90 Other stimulant use, unspecified, uncomplicated; Z72.89 Other problems related to lifestyle; Z79.899 Other long term (current) drug therapy
CPT/HCPCS: 99283

== ENCOUNTER 2021-03-15 10:39 | Emergency (ER) | payer MEDICAID ==
[~2021-03-15] VITALS: Ht 167.6 cm; Wt 72.7 kg
[~2021-03-15 10:39] MED LIST changes: +LURA60TA PO; -LURA60TA2 PO
[2021-03-15 11:48] VITALS: BP 114/66
== END 2021-03-15 15:44 | disposition left against medical advice (07) ==
LOC: ER 10:39
DX: R42 Dizziness and giddiness (principal); Z53.21 Procedure and treatment not carried out due to patient leaving prior to being seen by health care provider
CPT/HCPCS: 93005

== ENCOUNTER 2022-09-13 18:38 | Emergency (ER) | payer MEDICAID ==
[~2022-09-13] VITALS: Ht 167.6 cm; Wt 75.0 kg
[~2022-09-13 18:38] MED LIST changes: +LURA80TA2 PO; -LURA80TA3 PO
[2022-09-13 18:39] VITALS: BP 154/78
== END 2022-09-13 19:43 ==
LOC: ER 18:38
DX: R51.9 Headache, unspecified (principal); R45.1 Restlessness and agitation; F41.9 Anxiety disorder, unspecified; F31.9 Bipolar disorder, unspecified; F15.90 Other stimulant use, unspecified, uncomplicated; Z72.89 Other problems related to lifestyle; Z86.14 Personal history of Methicillin resistant Staphylococcus aureus infection; Z79.899 Other long term (current) drug therapy
CPT/HCPCS: 99284

== ENCOUNTER 2023-09-22 17:50 | Emergency (ER) | payer MEDICAID ==
[~2023-09-22] VITALS: Ht 167.6 cm; Wt 63.6 kg
[2023-09-22] MEDS ORDERED: DOXYCYCLINE 100MG CAPSULE PO STA (19:22)
[2023-09-22 19:27] LABS: BASOPHILS % (AUTO) 0.4 % (0-1); EOSINOPHILS # (AUTO) 0.1 X10'3 (0-0.9); EOSINOPHILS % (AUTO) 1.1 % (0-6); HEMOGLOBIN 13.9 g/dl (12.0-16.0); LYMPHOCYTES # (AUTO) 1.2 X10'3 (1.1-4.8); LYMPHOCYTES % (AUTO) 9.3 % (21-51); MEAN CORPUSCULAR HEMOGLOBIN 32.4 PG (27.0-31.0); MEAN CORPUSCULAR VOLUME 95.3 FL (78-98); MEAN PLATELET VOLUME 7.3 FL (7.4-10.4); MONOCYTES % (AUTO) 7.9 % (2-12); NEUTROPHILS # (AUTO) 10.5 X10'3 (1.8-7.7); NEUTROPHILS % (AUTO) 81.3 % (42-75); PLATELET COUNT 236 X10'3 (140-440); RED CELL DISTRIBUTION WIDTH 12.9 % (11.5-14.5); WHITE BLOOD COUNT 12.9 X10'3 (4.5-11.0)
[2023-09-22 19:40] LABS: ALANINE AMINOTRANSFERASE 25 U/L (12-78); ALBUMIN 3.5 G/DL (3.4-5.0); ALBUMIN/GLOBULIN RATIO 0.8 (1.1-1.5); ALKALINE PHOSPHATASE 70 IU/L (46-116); ANION GAP 9 (8-16); ASPARTATE AMINO TRANSFERASE 16 U/L (10-37); BILIRUBIN,TOTAL 0.3 MG/DL (0.1-1.0); BLOOD UREA NITROGEN 8 MG/DL (7-18); BUN/CREATININE RATIO 12.1 (10.0-20.0); CALCIUM 9.4 MG/DL (8.5-10.1); CHLORIDE 101 MMOL/L (99-107); CREATININE 0.66 MG/DL (0.40-0.90); GLUCOSE 103 MG/DL (70-104); POTASSIUM 3.9 MMOL/L (3.5-5.1); SODIUM 137 MMOL/L (135-145); TOTAL CARBON DIOXIDE 26.7 MMOL/L (24-32); eCRCL 104 ML/MIN; eGFR > 90 ML/MIN
[2023-09-22] MEDS ORDERED: acetaminophen 325mg tablet PO ONE (19:40)
[2023-09-22] MEDS ORDERED: DOXY150T9 PO (19:46)
[2023-09-22 21:16] VITALS: BP 107/54; PULSE 92; RESP 18; TEMP 98.8; O2SAT 100
== END 2023-09-22 21:27 | disposition home or self-care (01) ==
LOC: ER 17:50
DX: L03.116 Cellulitis of left lower limb (principal)
CPT/HCPCS: 36415; 80053; 83605; 84145; 85025; 87040; 99283

== ENCOUNTER 2024-04-16 13:47 | Emergency (ER) | payer MEDICAID ==
[~2024-04-16] VITALS: Ht 167.6 cm; Wt 72.0 kg
[2024-04-16] MEDS ORDERED: ONDA-243 PO (15:23)
[2024-04-16] MEDS ORDERED: HYDR-3973 PO (15:23)
[2024-04-16] MEDS ORDERED: LIDO15CR11 TOP (15:23)
[2024-04-16] MEDS ORDERED: SULF1TAB49 PO (15:23)
[2024-04-16] MEDS: oxyCODONE/APAP 5-325mg tablet PO ONE (15:52)
[2024-04-16] MEDS: CefTRIAXone 1000mg IM Kit (w/lidocaine diluent) IM ONE (15:53)
[2024-04-16] MEDS: ondansetron 4mg rapidly disintigrating tab PO ONE (15:53)
[2024-04-16 17:29] VITALS: BP 156/91; PULSE 124; RESP 22; TEMP 98.9; O2SAT 99
== END 2024-04-16 16:00 | disposition home or self-care (01) ==
LOC: ER 13:49
DX: L03.115 Cellulitis of right lower limb (principal); F41.9 Anxiety disorder, unspecified; F31.9 Bipolar disorder, unspecified; F10.90 Alcohol use, unspecified, uncomplicated; F15.90 Other stimulant use, unspecified, uncomplicated; Z79.899 Other long term (current) drug therapy
CPT/HCPCS: 96372; 99283; J0696

== ENCOUNTER 2024-05-05 14:34 | Outpatient (CLI) | payer MEDICAID ==
[~2024-05-05 14:34] MED LIST changes: +LIDO15CR11 TOP; +ONDA-243 PO
== END 2024-05-05 23:59 | disposition home or self-care (01) ==
LOC: MRI 14:34
PROVIDERS: ATTEND Student in an Organized Health Care Education/Training Program
DX: M51.27 Other intervertebral disc displacement, lumbosacral region (principal); M48.07 Spinal stenosis, lumbosacral region
CPT/HCPCS: 72148

== ENCOUNTER 2024-08-01 18:42 | Emergency (ER) | payer MEDICAID ==
[~2024-08-01] VITALS: Ht 167.6 cm; Wt 75.0 kg
[~2024-08-01 18:42] MED LIST changes: -LIDO15CR11 TOP; +LIDO15CR15 TOP
[2024-08-01] MEDS ORDERED: AMOX-117 PO (19:36)
[2024-08-01] MEDS: amox tr/potassium clavulanate 875/125mg TAB PO ONE (19:37)
[2024-08-01 19:50] VITALS: BP 128/82; PULSE 89; RESP 16; TEMP 98.7; O2SAT 98
== END 2024-08-01 19:52 | disposition home or self-care (01) ==
LOC: ER 18:42
DX: J04.0 Acute laryngitis (principal); Z20.822 Contact with and (suspected) exposure to COVID-19; J02.9 Acute pharyngitis, unspecified; H66.91 Otitis media, unspecified, right ear; I25.10 Atherosclerotic heart disease of native coronary artery without angina pectoris; F10.10 Alcohol abuse, uncomplicated; Z79.899 Other long term (current) drug therapy; Z87.891 Personal history of nicotine dependence
CPT/HCPCS: 36415; 87502; 87503; 87811; 99283

== ENCOUNTER 2025-01-26 22:56 | Emergency (ER) | payer MEDICAID ==
[~2025-01-26] VITALS: Ht 167.6 cm; Wt 77.0 kg
[2025-01-26 23:02] VITALS: BP 141/104; TEMP 98.2
[2025-01-26] MEDS ORDERED: FAMO-129 PO (23:58)
[2025-01-26] MEDS ORDERED: PRED20TA PO (23:58)
[2025-01-26] MEDS ORDERED: TRIA15CR61 TOP (23:58)
[2025-01-26] MEDS ORDERED: DIPH25TA62 PO (23:58)
--- NOTE | 2025-01-26 23:59 | Physician Documentation ---
History of Present Illness ~ Chief Complaint: Rash Stated Complaint: POISON OAK Time Seen by MD: 23:55 Primary Medical Doctor: [facility] HPI 44-year-old female reports a chief complaint of rash. Patient has a rash to her left upper extremity that she states she awoke with. Denies fevers or chills. Denies pain but does endorse itching. Denies active drainage or discharge. No other complaints at this time Medication Reconciliation Allergies: Coded Allergies: No Known Allergies (Unverified , 04/29/20) Scheduled Buspirone Hcl (Buspirone Hcl), 1 TAB PO BID, (Reported) Lidocaine (Lidocaine), 1 APPLIC TOP Q8H Lurasidone HCl (Latuda), 1 TAB PO DAILY, (Reported) Lurasidone HCl (Latuda), 1 TAB PO DAILY, (Reported) Propranolol Hcl* (Inderal*), 1 TAB PO BID, (Reported) Scheduled PRN ONDANSETRON ODT 4mg tablet (Ondansetron Odt), 1 TAB PO Q6H PRN PRN for nausea/vomiting Past Medical History Past Medical History: No Pertinent History, MRSA Abscess, Anxiety, Bipolar Past Surgical History: noncontributory Patient History: (CAD) Coronary arteriosclerosis FATHER, Onset:50's - 60 (AT LEAST 10 Y/O) MOTHER (CHF) Congestive heart failure MOTHER, Onset:50's - 60 (CVA) Cerebrovascular accident MOTHER, Onset:30's - 40 (Cancer) Malignant carcinoid tumor FATHER, Onset:50's - 60 (STOMACH CA) MOTHER, Onset:50's - 60 (Colon polyps, possibly CA) (MD) Myocardial infarction FATHER, Onset:50's - 60 (TIA) Transient ischemic attack MOTHER, Onset:50's - 60 Alcohol abuse FATHER, Onset:15's - 20 MOTHER (Hx ETOH) FH: HTN (hypertension) MOTHER, Onset:30's - 40 Hypercholesterolemia FATHER, Onset:50's - 60 MOTHER, Onset:40's - 50 No Family History of: (CABG) Coronary artery bypass grafting (COPD) Chronic obstructive lung disease (DM Type 2) Diabetes mellitus type 2 (DM Type1) Diabetes mellitus type 1 (PVD) Peripheral vascular disease Alzheimer's disease Aortic aneurysm Asthma Cardiac arrest Alcohol Use: Heavy Drug Use: methamphetamine Lives with: Family Lives In: Home Physical Exam Vital Signs: Temperature: 98.2, Source: Temporal, Heart Rate: 90, Respiratory Rate: 18, BP: 141/104, Pulse Oximetry: 100, Weight: 77.050 Oxygen Flow Rate: 0 Physical Exam General: Well developed, well nourished, no distress. HEENT: Atraumatic, normal conjunctiva, moist mucous membranes. Neck: Full range of motion, supple. Respiratory: Lungs clear, no respiratory distress. Chest: No accessory muscle use, nontender. Cardiovascular: Regular rate and rhythm. Gastrointestinal: Soft, nontender, nondistended. Bowel sounds present. Extremities: Normal range of motion, nontender, normal capillary refill, no deformity. Back: No midline tenderness, no CVA tenderness. Neurologic: Oriented x4. Distal gross motor and sensory intact all four extremities. Moves all 4 extremities spontaneously. Psychiatric: Normal mood and affect. Skin: Positive for a maculopapular rash to the posterior deltoid extending down to the posterior aspect of the humerus but she is well demarcated and negative for vesicles. Positive for excoriation murcia. Compartments soft compressible. Neurovascular intact distally Progress Results/Orders Results/Orders Vital Signs 01/26/25 23:02 Temp 98.2 Pulse 90 Resp 18 B/P (MAP) 141/104 Pulse Ox 100 O2 Flow Rate 0 Medical Decision Making Additional info obtained from: old records Findings After detailed discussion jet medical decision-making, diagnostic imaging results were discussed with patient. At this time patient appears to have evidence of some type of contact dermatitis and patient be treated symptomatically. No reason to give antibiotics due to an no symptoms consistent with cellulitis. Patient is advised to follow up with the primary care. ER precautions given. Patient is stable upon discharge. All patient questions answered to satisfaction Differential Dx:Considerations: Include: Candidiasis, Erythema multiforme, Impetigo, Lymes disease, Scabies, Tinea, Urticaria, Other (Contact dermatitis) Departure Disposition: 01 HOME / SELF CARE / HOMELESS Impression: Primary Impression: Skin irritation Additional Impression: Allergic contact dermatitis Condition: Stable Discharge Instructions: Hives, Contact Dermatitis Referrals: NO PRIMARY CARE PROVIDER (PCP) Prescriptions Prednisone* (Prednisone*) 20 Mg Tablet 1 TAB PO Q12H for 5 Days, #10 TAB Prov: MANOHAR REYNOSO 01/26/25 Diphenhydramine HCl (Benadryl Allergy) 25 Mg Tablet 2 TAB PO HS for 7 Days, #14 TAB 0 Refills Prov: MANOHAR REYNOSO 01/26/25 Famotidine (Pepcid) 20 Mg Tablet 1 TAB PO Q12H for 30 Days, #60 TAB 0 Refills Prov: MANOHAR REYNOSO 01/26/25 Triamcinolone Acetonide 0.5% Crm* (Kenalog 0.5% Crm*) 15 Gm Tube 1 APPLIC TOP Q12H for 30 Days, #30 GM apply to affected area(s) Prov: MANOHAR REYNOSO 01/26/25 Signature Scribe Signature: none used Attestation: Scribed for Emergency,Department by Manohar LOPEZ . 01/26/25 23:58 MANOHAR REYNOSO January 26, 2025 23:59
[2025-01-27] MEDS: famotidine 10mg tablet PO SCH (00:51)
[2025-01-27] MEDS: dexamethasone sod phosphate 10mg/ml inj IM STA (00:52)
[2025-01-27] MEDS: diphenhydrAMINE 50 mg/ml inj IM ONE (00:52)
[2025-01-27 00:57] VITALS: PULSE 78; RESP 19; O2SAT 97
== END 2025-01-27 00:59 | disposition home or self-care (01) ==
LOC: ER 22:56
DX: L23.89 Allergic contact dermatitis due to other agents (principal); I25.10 Atherosclerotic heart disease of native coronary artery without angina pectoris; F15.90 Other stimulant use, unspecified, uncomplicated; F10.90 Alcohol use, unspecified, uncomplicated; Z79.899 Other long term (current) drug therapy; Y90.9 Presence of alcohol in blood, level not specified
CPT/HCPCS: 96372; 99284; J1100; J1200

== ENCOUNTER 2025-06-17 17:58 | Emergency (ER) | payer MEDICAID ==
[~2025-06-17] VITALS: Ht 167.6 cm; Wt 75.7 kg
[~2025-06-17 17:58] MED LIST changes: +DIPH25TA62 PO; +FAMO-129 PO
[2025-06-17 18:10] VITALS: BP 128/83; PULSE 109; RESP 20; O2SAT 100
[2025-06-17] MEDS: ketorolac trometh 30MG/ML vial 30 MG/ML VIAL IM ONE (18:15)
--- NOTE | 2025-06-17 18:25 | Physician Documentation ---
History of Present Illness ~ Chief Complaint: Cold, cough & congestion Stated Complaint: ALL OVER BODY ACHES Time Seen by MD: 18:15 Primary Medical Doctor: PILI COLE This is a 44-year-old female who presents for evaluation of flu-like symptoms for the last three days. No obvious infectious exposure. No particular palliating or aggravating factors. She reports a generalized headache, not the worst of life, not accompanied by photophobia or phonophobia, not accompanied by focal deficits. No palliating or aggravating factors for the headache either. Reports myalgias and generalized body aches and a sore throat that is making it very difficult to swallow but she does not have an actual dysphagia. Denies any chest pain or difficulty breathing, denies any nausea, vomiting, diarrhea, abdominal pain. Ibuprofen and Tylenol do not seem to be helping. States that she only came in because her family Mater Denies any concerns for tobacco, alcohol or illicit substances use or exposure. Medication Reconciliation Allergies: Coded Allergies: No Known Allergies (Unverified , 06/17/25) Scheduled Buspirone Hcl (Buspirone Hcl), 1 TAB PO BID, (Reported) Diphenhydramine HCl (Benadryl Allergy), 2 TAB PO HS Famotidine (Pepcid), 1 TAB PO Q12H Lidocaine (Lidocaine), 1 APPLIC TOP Q8H Lurasidone HCl (Latuda), 1 TAB PO DAILY, (Reported) Lurasidone HCl (Latuda), 1 TAB PO DAILY, (Reported) Propranolol Hcl* (Inderal*), 1 TAB PO BID, (Reported) Scheduled PRN ONDANSETRON ODT 4mg tablet (Ondansetron Odt), 1 TAB PO Q6H PRN PRN for nausea/vomiting Past Medical History Past Medical History: No Pertinent History, MRSA Abscess, Anxiety, Bipolar Past Surgical History: noncontributory Patient History: (CAD) Coronary arteriosclerosis FATHER, Onset:50's - 60 (AT LEAST 10 Y/O) MOTHER (CHF) Congestive heart failure MOTHER, Onset:50's - 60 (CVA) Cerebrovascular accident MOTHER, Onset:30's - 40 (Cancer) Malignant carcinoid tumor FATHER, Onset:50's - 60 (STOMACH CA) MOTHER, Onset:50's - 60 (Colon polyps, possibly CA) (RI) Myocardial infarction FATHER, Onset:50's - 60 (TIA) Transient ischemic attack MOTHER, Onset:50's - 60 Alcohol abuse FATHER, Onset:15's - 20 MOTHER (Hx ETOH) FH: HTN (hypertension) MOTHER, Onset:30's - 40 Hypercholesterolemia FATHER, Onset:50's - 60 MOTHER, Onset:40's - 50 No Family History of: (CABG) Coronary artery bypass grafting (COPD) Chronic obstructive lung disease (DM Type 2) Diabetes mellitus type 2 (DM Type1) Diabetes mellitus type 1 (PVD) Peripheral vascular disease Alzheimer's disease Aortic aneurysm Asthma Cardiac arrest Alcohol Use: Heavy Drug Use: methamphetamine Lives with: Family Lives In: Home Review of Systems ROS 10 point review of systems was performed and unless noted above in HPI is negative for acute process/complaint. Physical Exam Vital Signs: Temperature: 99.3, Source: Oral, Heart Rate: 109, Respiratory Rate: 20, BP: 128/83, Pulse Oximetry: 100, Weight: 75.700 Oxygen Flow Rate: 0 Physical Exam GENERAL: Awake, alert, oriented, GCS 15, no apparent distress, non-toxic appearing, answers questions, follows commands appropriately. Examined in triage HEENT: Atraumatic, normocephalic, pupils equal, extraocular muscles intact, sclerae anicteric, mucus membranes moist, oropharynx is beefy red erythematous, tonsils are 3+ with a pena/yellow exudate, there is no floor of the mouth elevation, no drooling, no trismus, no stridor. NECK: supple, full active range of motion, trachea midline, no thyromegaly, no lymphadenopathy, no JVD. CARDIOVASCULAR: Slightly tachycardic and regular rate/rhythm, no murmurs/fernandes ps/rubs, Pulses are 2+ in all extremities and symmetric. Capillary refill less than 2 seconds. PULMONARY: Nonlabored, good air movement ,no respiratory distress, speaking in full sentences, clear to auscultation bilaterally, no wheezing, no ronchi, no rales, no accessory muscle use. GASTROINTESTINAL: Soft, non-tender, non-distended, normal active bowel sounds, no organomegaly, no pulsatile masses, no CVA tenderness. NEUROLOGIC: Lucid with normal mental status. Normal facial symmetry. Moves all extremities symmetrically and with purpose. No truncal ataxia. Speech is fluid without evidence of dysarthria or aphasia, no focal deficits appreciated. MUSCULOSKELETAL: There is full range of motion of all extremities. There is no joint pain or joint swelling or joint erythema. There is no muscle pain or tenderness or swelling. EXTREMITIES: warm, well-perfused, no cyanosis, no clubbing, no edema, no acute deformities. Skin: warm, dry, no rashes or lesions, no jaundice, no petechiae orpurpura. No ecchymosis. PSYCHIATRIC: Normal affect, normal insight, normal concentration. Focused exam: [] Progress Results/Orders Results/Orders Orders - OBEY MUNSON DO Covid19 Binax Poc Result Entry (06/17/25 18:15) Amox Tr/Potassium Clavulanate (Augmentin (06/17/25 20:55) Completed Orders - OBEY MUNSON DO Strep A Rapid (06/17/25 18:15) Ketorolac Trometh 30mg/Ml Vial (Toradol (06/17/25 18:15) Influenza Type A&B Rapid Test (06/17/25 18:15) Vital Signs 06/17/25 18:10 Temp 99.3 Pulse 109 Resp 20 B/P (MAP) 128/83 Pulse Ox 100 O2 Flow Rate 0 Laboratory Tests Test 06/17/25 18:15 06/17/25 19:20 Influenza Type A Antigen Negative Influenza Type B Antigen Negative SARS-CoV-2 Antigen (Rapid) Negative Group A Streptococcus Rapid Positive H Medical Decision Making Findings Facility Status: ED Holds, RME process The plan was discussed with the patient, who demonstrates clear understanding of the plan and is in agreement with the plan unless otherwise noted in the chart. All questions have been answered, all concerns were addressed unless otherwise documented. I was available throughout their ED stay for frequent reassessment and questions. Differential Diagnoses (considered and possible or likely): [Viral syndrome that encompasses her myalgias, headache, sore throat secondary to strep, COVID, influenza, RSV, upper respiratory infection with the top of the viruses] ??Differential Diagnoses (considered and unlikely, not requiring evaluation currently): [Unlikely to represent bacterial pneumonia as there is no cough, no shortness a breath, no objective fever] MDM Data Please see HPI for the following: Independent Historians and external Records Review. Historian: [Patient] Independent Historians: ?[Record review] Medication Management: [Reviewed medication list] Social History and determinants: [Reviewed] Please see the body of the note for the following: Any independent interpretations of ECG, imaging studies. All vitals signs/haemodynamics, ordered tests were independently reviewed and interpreted by myself. Nursing triage complaint and vitals reviewed, additional nursing notes were reviewed as available and I agree unless otherwise noted or documented in contradiction in the chart Vital Signs: Independently reviewed Labs: Independently interpreted Imaging: Independently interpreted Old Medical Records: Independently reviewed, see HPI for relevant summary and information Pulse Oximetry: [97%] interpreted as [normal on room air] by me Additionally notably showing: [Hemodynamically stable. She is positive for strep. Negative for influenza and COVID.] Tests considered but not ordered include: [Blood work and imaging has been considerably did not appear to be necessary at this time] Social Determinants of Health Impact: Patient was evaluated in [facility] [place] access to healthcare due to below par ratio of patient to medical providers. [] Comorbid Conditions Impacting Present Evaluation and Care/Treatment: [None reported with the patient] Management Discussions with other Healthcare Providers: [None] Treatment and Disposition Medication Management (Given or considered): [Initial dose of antibiotics. Toradol was ordered, patient refused]. See EMR for details Consideration for Hospitalization/Escalation/Deescalation of Care: Admission for observation has been considered, [however the patient is able to tolerate p.o., their symptoms are controlled, they are able to rely on oral medications, and their chief complaint/diagnosis can be managed on outpatient basis.] ?ED Course:?[No clinical deterioration] ?Shared decision making:?[Patient is hemodynamically stable for discharge home with follow with their primary care provider. [ ] Specific and cautious return precautions provided and discussed with full understanding. Any incidental findings were also discussed and follow up recommendations given. [] All questions answered. Patient/family were able to verbalize back return precautions. Patient/family agree to plan. Copies of imaging and laboratory studies were provided.] Code status:?FULL Please see the full Electronic Medical Record for full details of nursing documentation, medications list, other records of complete past medical history and conditions, vital signs, laboratory studies, and any radiologic study interpretations by radiologists. Portions of this note were completed using [employer] software and as a result there may exist minor errors in spelling. I have reviewed elements of past family and social history and agree as included in note. Departure Disposition: HOME / SELF CARE / HOMELESS Impression: Primary Impression: Strep pharyngitis Additional Impressions: Myalgia Flu-like symptoms Condition: Improved Discharge Instructions: Strep Throat, Adult Referrals: NO PRIMARY CARE PROVIDER (PCP) Prescriptions Amox Tr/Potassium Clavulanate (Augmentin 875-125 Tablet) 1 Each Tablet 1 TAB PO Q12H for 7 Days, #14 TAB Prov: OBEY MUNSON DO 06/17/25 Education Educated: Patient Educated regarding: diagnosis, treatment, prognosis Signature Scribe Signature: No scribe Attestation: Date: Jun 17, 2025 Time: 18:24 This note accurately reflects clinical decisions, work performed by myself, DO [address] NICHOLAS M DO Jun 17, 2025 18:24
[2025-06-17 19:00] LABS: INFLUENZA TYPE A ANTIGEN RAPID NEGATIVE (Negative); INFLUENZA TYPE B ANTIGEN RAPID NEGATIVE (Negative)
[2025-06-17 19:47] LABS: STREP A SCREEN POSITIVE (Neg)
[2025-06-17] MEDS ORDERED: AMOX-117 PO (20:54)
[2025-06-17 20:55] VITALS: TEMP 99.3
[2025-06-17] MEDS: amox tr/potassium clavulanate 875/125mg TAB PO ONE (21:00)
== END 2025-06-17 21:08 | disposition home or self-care (01) ==
LOC: ER 17:58
DX: J02.0 Streptococcal pharyngitis (principal); M79.10 Myalgia, unspecified site; F41.9 Anxiety disorder, unspecified; F31.9 Bipolar disorder, unspecified; I25.10 Atherosclerotic heart disease of native coronary artery without angina pectoris; F15.90 Other stimulant use, unspecified, uncomplicated; F10.90 Alcohol use, unspecified, uncomplicated; Y90.9 Presence of alcohol in blood, level not specified; Z79.899 Other long term (current) drug therapy; Z20.822 Contact with and (suspected) exposure to COVID-19
CPT/HCPCS: 36415; 87804; 87811; 87880; 99283